=== PATIENT | male | born 1970 ===

== ENCOUNTER 2024-09-09 21:48 | Inpatient (IN) | payer SELFPAY ==
[~2024-09-09] VITALS: Ht 180.3 cm; Wt 73.3 kg
[2024-09-10 13:41] VITALS: BP 147/95
[2024-09-10] MEDS ORDERED: HydrOXYzine Pamoate 50 MG Cap PO PRN (14:00)
[2024-09-10] MEDS ORDERED: FLU VACC TS2024-25(6MOS UP)/PF 45 MCG/0.5 ML SYRINGE IM SCH (14:05)
[2024-09-10] MEDS ORDERED: Haloperidol Lactate Inj. 5 MG/ML Injection IM PRN (14:05)
[2024-09-10] MEDS ORDERED: Aluminum Hydroxide 320MG/5ML 473 ML PO PRN (14:05)
[2024-09-10] MEDS ORDERED: Ibuprofen 600 MG Tab PO PRN (14:05)
[2024-09-10] MEDS ORDERED: DiphenhydrAMINE HCl 50 MG/ML 1ML Vial IV PRN (14:05)
[2024-09-10] MEDS ORDERED: Calcium Carbonate 500 MG Tab Chew PO PRN (14:05)
[2024-09-10] MEDS ORDERED: Haloperidol 5 MG Tab PO PRN (14:05)
[2024-09-10] MEDS ORDERED: Acetaminophen 325 MG TABLET PO PRN (14:05)
[2024-09-10] MEDS ORDERED: DiphenhydrAMINE HCl 50 MG Cap PO PRN (14:10)
[2024-09-10] MEDS ORDERED: TraZODone HCl 50 MG Tab PO PRN (14:10)
[2024-09-10] MEDS ORDERED: LORazepam 2 MG Tab PO PRN (14:10)
[2024-09-10] MEDS ORDERED: Polyethylene Glycol 3350 17 gm PO PRN ×2 (14:10→17:50)
[2024-09-10] MEDS ORDERED: OLANZapine ODT 10 MG Tab MM PRN (14:10)
[2024-09-10] MEDS ORDERED: Ondansetron 4 MG SoluTab MM PRN (14:10)
[2024-09-10] MEDS ORDERED: Melatonin 3 MG Tab PO PRN (14:10)
[2024-09-10] MEDS ORDERED: LORazepam 2 MG/ML 1ML Injection IM PRN (14:15)
[2024-09-10 14:43] VITALS: BP 147/95
[2024-09-10] MEDS ORDERED: LEVSOD25 PO (15:17)
--- NOTE | 2024-09-10 16:03 | NUR ---
ADMISSION NOTE PT DIRECT ADMIT FROM [facility] IN [place] AND ARRIVED AT 1332. PT TEARFUL UPON ARRIVAL AND SEEMS TO BE RESPONDING TO INTERNAL STIMULI. PT ABLE TO ANSWER SOME QUESTIONS, BUT NOT MANY. 2 RN SKIN CHECK COMPLETED. LARGE PROTRUSION NOTED TO LRQ. PT UNABLE TO SAY IF HE HAS SEEN A DOCTOR FOR THE MASS OR HOW LONG HE HAS HAD IT. MASS SEEMS TENDER TO PALPATION AND PT SAYS THAT HE HAS ISSUES WITH BM'S, BUT UNABLE TO ELABORATE. PT UNABLE TO ANSWER MOST ASSESSMENT QUESTIONS DUE TO RESPONDING TO INTERNAL STIMULI AND VISIBLY DISTRAUGHT. PT UNSURE OF REASON FOR ADMISSION AND SAYS "I NEED TO FIND OUT WHAT IS WRONG WITH ME". PT ORIENTED TO ROOM AND SHOWERED, WHICH IMPROVED HIS MOOD GREATLY. PT USING HEADPHONES AND HAS SINCE CALMED DOWN. PT CURRENTLY WALKING IN THE HALLS WITH HEADPHONES ON.
--- NOTE | 2024-09-10 18:12 | NUR ---
SHIFT SUMMARY PT DIRECT ADMIT FROM [facility] IN [place]. PT TEARFUL AND CONFUSED UPON ADMISSION, BUT HAS SINCE CLEARED AFTER BEING ORIENTED TO THE UNIT. PT SEEMS TO BE RESPONDING TO SOME INTERNAL STIMULI BUT FINDS THAT USING HEADPHONES HELPS. LARGE HERNIA NOTED AND HOSPITALIST CONSULTED. HOSPITALIST SAW PT AND RECOMMENDS TO MONITOR PT'S ABILITY TO PASS GAS, HAVE A BM, PAIN, SWELLING, AND REDNESS. PT HAS NOT RECENTLY HAD A BM AND MIRALAX ORDERED. PT ATE LUNCH AND DINNER. PT PARTICIPATING IN [facility]LEU ACTIVITIES. HE CONTINUES TO DENY SI OR HI. MONITORED VIA Q15 ROUNDING FOR SAFETY.
--- NOTE | 2024-09-10 21:15 | NUR ---
MASS SCORE OF 9 PT WAS LAYING IN BED AT START OF SHIFT, AWAKES EASILY. PT REPORTED AUDITORY HALLUCINATIONS BUT WAS CALM AND COOPERATIVE AT THAT TIME. PT GOT UP FOR EVENING SNACK AND WENT BACK TO BED. PT HAD AGREED TO TAKE TRAZODONE AND MELATONIN TO ASSIST WITH SLEEPING, HOWEVER WHEN I WENT TO ADMINISTER MEDS HE STATED THAT HE HAS STOPPED BREATHING BEFORE AND DID NOT WANT TO TAKE THE MEDICATIONS. PT THEN BECAME TEARFUL, WAS HAVING AUDITORY HALLUCINATIONS, TALKING TO HIS MOM AND DAD, STATING "MOMMY AND DADDY, WHY DID YOU DO THAT?" PT APPEARED TO ALSO HAVE VISUAL HALLUCINATIONS. HE WAS DIFFICULT TO REDIRECT OR CONSOLE. RADIOLOGY DIRECTOR ASSISTED WITH ATTEMPTS TO CALM PT. SECURITY WAS CALLED FOR STAND BY ASSIST IF NEEDED FOR ADMINISTRATION OF B52 IM. PT THEN AGREED TO TAKE B52 ORALLY, WHICH WERE GIVEN FOR MASS SCORE OF 9. PT HAS BEEN CALM AND SLEEPING WITH RESPIRATIONS CONFIRMED. Q15 MINUTE CHECKS TO CONTINUE BY STAFF PER UNIT PROTOCOL.
[2024-09-10 22:24] VITALS: BP 127/83
--- NOTE | 2024-09-11 04:24 | NUR ---
END OF SHIFT UPDATE PT HAS BEEN SLEEPING THROUGHOUT THE NIGHT AFTER RECEIVING B52. Q15 MINUTE CHECKS TO CONTINUE PER UNIT PROTOCOL.
[2024-09-11 08:20] VITALS: BP 104/58
[2024-09-11 08:45] LABS: Cholesterol 156 mg/dL (50-200); HDL Cholesterol 39 mg/dL (>39); LDL/HDL RATIO 2.5; Low Density Lipoprotein Chol 98 mg/dL (0-110); Triglycerides 96 mg/dL (30-160); Very Low Density Lipoprot Chol 19 mg/dL (6-32)
[2024-09-11] MEDS ORDERED: Multivitamins 1 Tab PO SCH (09:00)
[2024-09-11] MEDS ORDERED: OLANZapine 10 MG Tab PO SCH (11:00)
--- NOTE | 2024-09-11 18:17 | NUR ---
SHIFT SUMMARY PT A/O X3 AND HIS MENTATION SEEMS TO WAX AND WANE. THE PT IS NOT ALWAYS ABLE TO ANSWER ASSESSMENT QUESTIONS AND SEEMS TO BE RESPONDING TO INTERNAL STIMULI. PT DID ATTEND SOME GROUPS TODAY AND MEALS. PT SEEM BY HOSPITALIST TO CHECK ON UMBILICAL HERNIA. HERNIA REMAINS REDUCEABLE AND BT'S ACTIVE IN ALL QUADRANTS. PT DENIES HAVING A BM TODAY AND WAS GIVEN MIRALAX THIS SHIFT. PT STARTED ON ZYPREXA THIS SHIFT WELL.
[2024-09-11 22:09] VITALS: BP 95/62
--- NOTE | 2024-09-12 04:24 | NUR ---
Patient has been sleeping since beginning of shift and Declined coming out of his room for snack time. Patient did wake up enough to have a brief comversation with this RN and denies SI, HI, VH and TH. Still having intermittant auditory hallucinations which patient stated he did not recognize what they were. HE did agree to take his Zyprexa last night when it was explained to him that this medication would help him with his hallucinations. No complaints of pain or discomfort at time of assessment. At this time, patient has slept approximately 9.5 hours, and is still sleeping still. Will continue closely monitoring every 15 minutes for safety and comfort.
[2024-09-12] MEDS ORDERED: Levothyroxine Sodium 0.05 MG Tab PO SCH (06:00)
[2024-09-12 07:54] LABS: Hematocrit 43.9 % (37.0-53.0); Hemoglobin 14.8 g/dL (13.5-17.5); Mean Corpuscular HGB 32.4 pg (26.0-34.0); Mean Corpuscular HGB Conc 33.7 g/dL (31.5-36.5); Mean Corpuscular Volume 96 fL (80-100); Mean Platelet Volume 9.1 fL (9.1-12.4); Platelet Count 179 K/mm3 (150-400); RDW Coefficient Variation 13.4 % (11.7-14.2); RDW Standard Deviation 47.6 fL (35.1-46.3); Red Blood Cell Count 4.57 M/mm3 (4.30-5.90); White Blood Cell Count 9.03 K/mm3 (4.00-11.30)
[2024-09-12 08:17] LABS: Albumin, Blood 3.3 g/dL (3.4-5.0); Albumin/Globulin Ratio 0.9 (0.8-1.8); Bilirubin, Total 0.7 mg/dL (0.1-1.0); Bun/Creatinine Ratio 20.2 (12.0-20.0); Calcium, Blood 8.6 mg/dL (8.5-10.1); Creatinine, Blood 1.14 mg/dL (0.60-1.20); Globulin, Blood 3.8 g/dL (2.2-4.0); Potassium, Blood 4.5 mmol/L (3.5-5.5); Thyroid Stimulating Hormone 9.16 uIU/mL (0.360-4.800); Total Protein, Blood 7.1 g/dL (6.4-8.2)
[2024-09-12 08:24] LABS: BASOPHILS PERCENT MAN 0 % (0-2); EOSINOPHILS PERCENT MAN 0 % (0-6); LYMPHOCYTES % ATYPICAL MANUAL 2 % (0-0); LYMPHOCYTES ABSOLUTE MAN 6.86 K/mm3 (0.84-5.20); LYMPHOCYTES PERCENT MAN 74 % (21-46); MONOCYTES ABSOLUTE MAN 0.72 K/mm3 (0.16-1.47); MONOCYTES PERCENT MAN 8 % (4-13); NEUTROPHILS ABSOLUTE MAN 1.44 K/mm3 (1.96-9.15); SEG NEUTROPHILS PERCENT MAN 16 % (41-73); TOTAL CELLS COUNTED 100
[2024-09-12 08:31] VITALS: BP 99/63
[2024-09-12 09:43] LABS: Free Thyroxine 0.66 ng/dL (0.70-1.60); Thyroxine (T4) 5.2 ug/dL (4.5-12.1); Triiodothyronine, Free 2.04 pg/mL (2.18-3.98)
[2024-09-12] MEDS ORDERED: RisperiDONE 1 MG Tab PO ONE (16:20)
--- NOTE | 2024-09-12 16:41 | NUR ---
PT C/O INCREASED AUDITORY HALLUCINATIONS. PT HAS REMAINED IN HIS ROOM SITTING UP IN BED FOR MOST OF THE DAY. HAS BEEN PROVIDED WITH HEADPHONES, STATES THAT THE VOICES ARE COMING THROUGH OVER THE MUSIC. PROVIDER NOTIFIED AND STATED TO GIVE HS DOSE OF RISERDONE NOW AND HOLD HS DOSE. PT MEDICATED PER ORDERS.
--- NOTE | 2024-09-12 16:58 | NUR ---
SHIFT SUMMARY: PT ALERT AND COOPERTIVE. DENIES SI, HI AND AVH. C/O AUDITORY AND VISUAL HALLUCINATIONS. PROVIDER WAS NOTIFIED NOTED AND PT WAS MEDICATED PER ORDERS. PT HAS BEEN CALM AND COOPERATIVE, COMPLIANT WITH MEDICATIONS AND PRESENT FOR MEALS.
[2024-09-12] MEDS ORDERED: OLANZapine 5 MG Tab PO SCH (21:00)
[2024-09-12] MEDS ORDERED: RisperiDONE 1 MG Tab PO SCH (21:00)
[2024-09-12 21:02] VITALS: BP 145/93
--- NOTE | 2024-09-13 04:14 | NUR ---
SHIFT SUMMARY : PT A/O X3. REMINEDED OF PLACE AND WHY HE WAS HERE. PT COOPERATIVE AND ENGAGED FOR INTERVIEW. PT IN BED SINCE BEGINING OF SHIFT. PT DID GET UP TO HAVE SNACK. MED COMPLIANT. DENIES TO BE SI AND HI. PT STATES THAT HE IS HEARING VOICES, BUT UNABLE TO STATE CLEARLY OF WHAT IS BEING SAID TO HIM. STATES" I TELL THEM TO GO AWAY" WHILE USING HAND MOTION IF BRUSHING SOMETHNG OFF OF HIS FACE. COMPALINED OF HIS TEETH BEING LOOSE. PUT IN FOR DENTAL CONSULT. DENIES TO HAVE DENTAL PAIN. APPEARS TO HAVE SOME PARANOIA PRESENT UNABLE TO SIT STILL FOR THE WHOLE INTERVIEW. PT HAS BEEN SLEEPING AD BEING MONITORED Q 15 MINUTES FOR SAFTEY. WILL CONTINUE TO MONITOR.
[2024-09-13 09:00] VITALS: BP 142/91
--- NOTE | 2024-09-13 16:51 | NUR ---
SHIFT SUMMARY: PT ALERT, ORIENTED AND COOPERATIVE. PT REPORTS THAT HE IS HAVING AUDITORY AND VISUAL HALLUCINATION. COMPLIANT WITH MEDICATIONS. PT HAS BEEN OUT FOR MEALS BUT HAS SPENT THE MAJORITY OF THE DAY. USING THE HEADPHONES AT TIMES AND SLEEPING.
[2024-09-13 20:53] VITALS: BP 133/84
[2024-09-13] MEDS ORDERED: RisperiDONE 1 MG Tab PO SCH (21:00)
--- NOTE | 2024-09-14 04:33 | NUR ---
SHIFT SUMMARY PATIENT BACK TO HIS ROOM AFTER SNACK, APPEARS SENSITIVE TO LOUD NOISES. PATIENT BECOMING ANXIOUS AND AGITATED WHEN THERE WAS 3 TABLETS OF RISPERIDONE, "I TAKE TO MANY PILLS" "THEY ARN'T EVEN HELPING" VERBAIZED THAT HE WAS AFRAID TO GO TO SLEEP AND NOT WAKE-UP. "WHY CAN'T THEY JUST CUT THIS THING OUT OF ME" SHOWING WHERE ON HIS HEAD TO CUT AND THEN "THEY CAN JUST PULL IT OUT" AFTER MULTIPLE ATTEMPTS TO EXPLAIN THE DOSAGE CHANGE AND THAT IT IS IMPORTANT TO TAKE THE MEDICATIONS THAT THE DOCTOR ORDERS. PATIENT "WELL IF YOU ARN'T GOING TO GIVE UP ON THIS I'LL JUST TAKE IT" AND HE WAS ABLE TO SWALLOW TABLETS WITHOUT DIFFICULTY. DURING FURTHER CONVERSATION PATIENT HAVING PARANOID CONVERSATION ABOUT "THEY ARE TAKING OVER" AND THAT THE "WAR IS HERE". NOTICED PATIENT RUBBING HIS ABD AND ASKED IF HIS HERNIA WAS PAINFUL. VERBALIZED THAT HE CAN FEEL "IT" MOVING IN HIS BODY AND NOBODY BELIEVES HIM. AT ONE POINT DURING THE EARLY EVENING MHA NIMA FOUND THE PATIENT IN HIS BATHROOM LAYING ON THE BATHROOM DOOR, PATIENT VERBALIZING THAT "IT'S TO CROWDED OUT THERE" POINTING TO HIS ROOM, RETURNING BACK TO BED AFTER THEIR CONVERSATION. DENIES SI OR HI. T/O THE REMAINDER OF THE NIGHT PATIENT APPEARS TO BE SLEEPING WELL, RESP EVEN AND UNLABORED. CONTINUE TO MONITOR Q15MIN
--- NOTE | 2024-09-14 06:09 | NUR ---
PATIENT AWAKENS TO SLIGHT STIMULI FOR 0600 THYROID. WHEN ASKED HOW HE SLEPT VERBALIZED "WELL" TAKING MED WITHOUT HESITATION.
--- NOTE | 2024-09-14 13:54 | NUR ---
SHIFT ASSESSMENT: PT DENIED SI, HI, ANXIETY AND PAIN. HE ENDORSED AVH, "THEY ARE ALWAYS THERE." WHEN ASKED ABOUT HIS MOOD HE REPORTED, "I DON'T HAVE ONE." HE HAS REMAINED IN HIS ROOM MOST OF THE DAY. PT HAS EATEN HIS MEALS. HE IS COOPERATIVE WITH CARE AND IS MED COMPLIANT.
--- NOTE | 2024-09-14 15:47 | NUR ---
PT HAS BEEN IN BED ALL DAY OTHER THAN MEAL TIMES, HE HAS BEEN COMPLIANT WITH MEDS AND HAS BEEN COOPERITIVE WITH CARE. HE REPORTED THAT HE IS GOING TO SHOWER IN A FEW MINUTES.
[2024-09-14] MEDS ORDERED: RisperiDONE 1 MG Tab PO SCH (21:00)
[2024-09-14 21:35] VITALS: BP 133/84
--- NOTE | 2024-09-15 04:35 | NUR ---
SHIFT SUMMARY: PATIENT WAS IN BED AT THE BEGINNING OF THE SHIFT. HE DECLINED OFFER OF SNACK TIME AT 1999. HE STATED "I AM HEARING THE VOICES AND THEY MADE SOMETHING FLY ACROSS THE ROOM AND HIT ME IN THE HEAD WHILE I WAS SLEEPING". HE AGREED TO TRY A VISTARIL WITH HIS EVENING MEDICATIONS. IT APPEARED TO HAVE GOOD EFFECT. HE STATED, BEFORE MEDICATIONS, "I WANT TO BECAUSE THE VOICES ARE BOTHERING ME". RN USED ACTIVE LISTENING AND EDUCATION REGARDING THE NATURE OF VOICES TO INTERACT WITH PATIENT. HE STATED A GOAL OF "QUIETING THEM TO A WHISPER". HE WAS COOPERATIVE, A BIT GRUMPY. HE WAS COMPLIANT WITH EVENING MEDICATIONS. HE DID NOT KNOW WHAT THE RISPERDAL WAS FOR, BUT WAS ACCEPTING OF MEDICATION EDUCATION. HE STATED A DESIRE TO SPEAK ABOUT IT WITH THE DOCTOR IN THE MORNING. HE STATED THAT HE WANTED TO BUT DID NOT PLAN TO ACTIVELY SEEK SUICIDE AT THIS TIME. HE ALSO DENIED WANTING TO SELF HARM AT THIS TIME. HE MOSTLY RESTED QUIETLY IN BED WITH EYES CLOSED AND RESPIRATIONS CONFIRMED. CONTINUING TO MONITOR FOR SAFETY WITH Q15 MINUTE CHECKS.
[2024-09-15] MEDS ORDERED: Paliperidone Palmitate 234 MG/1.5 ML SYR IM ONE (16:00)
--- NOTE | 2024-09-15 18:23 | NUR ---
SHIFT SUMMARY PT SLEEPING IN HIS ROOM FOR THE MAJORITY OF THE SHIFT. HE ATTENDED MEALS BUT DID NOT ATTEND ANY GROUPS THIS SHIFT. HE DENIES SI BUT ENDORSES AH. PT REPORTS THAT THE VOICES ARE CONSTANT. PT RECEIVED FIRST INVEGA INJECTION THIS SHIFT AND PT COMPLIANT WITH MEDICATIONS. WILL REPORT TO ONCOMING RN.
[2024-09-15 20:23] VITALS: BP 113/76
--- NOTE | 2024-09-16 04:21 | NUR ---
SHIFT SUMMARY: PATIENT WAS IN BED AT THE BEGINNING OF THE SHIFT, AND STAYED THERE EXCEPT FOR TRIPS TO HIS BATHROOM. HE WAS FRIENDLIER AND MORE ENGAGED IN CONVERSATIONS. HE WAS MEDICATION COMPLIANT. HE DID NOT WANT TO GO TO SNACK OR FOLLOW UP THIS SHIFT. HE MOSTLY RESTED QUIETLY WITH EYES CLOSED AND RESPIRATIONS CONFIRMED. HE ADMITTED TO HEARING VOICES, BUT STATED, "THEY ARE QUIETER TODAY". HE STATED, "THEY ARE NOT GONE". HE PRESENTS IRRITATED BY THE VOICES. HE STATED, "YES, THEY ARE BOTHERING ME A LOT". HE STATED THAT HE OFTEN FEELS LIKE DYING, BUT THAT HE WILL NOT TRY TO DO SO AT THIS TIME, BECAUSE "THINGS ARE BETTER". HE ALSO DENIED THOUGHTS OF SELF HARMING AT THIS TIME. HE AGREED TO COME AND TALK TO SOMEONE OR EVEN CALL OUT SHOULD THAT CHANGE AT ANY TIME. CONTINUING TO MONITOR FOR SAFETY WITH Q15 MINUTE CHECKS.
[2024-09-16 07:59] VITALS: BP 116/68
--- NOTE | 2024-09-16 17:26 | NUR ---
SHIFT SUMMARY PT DENIES SI AND HI. HE STILL REPORTS HEARING SOME VOICES BUT SAYS THAT THEY ARE "WHISPERS" COMPARED TO WHAT THEY WERE. PT DID WISH TO DISCHARGE THIS SHIFT BUT IS NOW AGREEABLE TO STAY. PT REPORTS SOME TENDERNESS IN HIS HERNIA BUT HERNIA APPEARS UNCHANGED AND PT IS ABLE TO REDUCE IT HIMSELF. PT HAD A BM YESTERDAY AND IS PASSING GAS. RN RECOMMENDED THAT PT FOLLOW UP WITH PRIMARY OUTPATIENT FOR HERNIA. NO OTHER COMPLAINTS THIS SHIFT. WILL REPORT TO ONCOMING RN.
[2024-09-16 20:16] VITALS: BP 112/81
[2024-09-16] MEDS ORDERED: RisperiDONE 1 MG Tab PO SCH (21:00)
--- NOTE | 2024-09-17 04:32 | NUR ---
SHIFT SUMMARY PATIENT AWAKE IN BED AT BEGINNING OF SHIFT. ANSWERING QUESTIONS, CONTINUES TO HAVE BOTH AUDITORY AND VISUAL HALLUCINATIONS, VERBALIZING "SEE IT IN MY EYE" AND "ATTACHED TO MY BODY AND I FIGHT IT" TALKING ABOUT FALLING STARS AND FALLEN ANGLES WHICH PROGRESSES INTO MORE PARANOID DISCUSSIONS. AT TIMES DIFFICULT TO FOLLOW CONVERSATION. PATIENT WENT TO SNACK THEN RETURNED TO HIS ROOM QUICKLY. PATIENT COMPLIANT WITH MEDICATIONS, WHEN EXPLAINED THAT HE HAD 5 TABS OF RISPERDAL PATIENT ABLE TO REMEMBER THAT HE HAD 4 EARLIER, AND THAT HE WAS HOPING TO THE CURRENT DOSE INTO 1 TAB SOON. PATIENT VERBALIZED FRUSTRATION THAT IT WAS TAKING SO LONG TO CONTROL "THESE" HE WAVES HIS HAND AROUND. PATIENT APPEARS TO BE SLEEPING WELL T/O NIGHT WITH RESP EVEN AND UNLABORED. CONTINUE TO MONITOR Q15MIN.
--- NOTE | 2024-09-17 09:01 | NUR ---
PT DENIED SI AND HI, HE ENDORSED AUDITORY HALLUCINATIONS, "THEY ARE STILL THERE BUT THEY ARE QUIET." HE ATE MINIMAL BREAKFAST AND RETURNED TO BED. PT REPORTED DISCOMFORT TO THE HERNIA 4/10w. HE AGREED THAT "I CAN MAKE IT GO DOWN BUT THEN WHEN I EAT OR ANYTHING IT COMES BACK." THE AREA IS SOFT AND HAS GAS MOVEMENT. WHEN ASKED ABOUT HIS MOOD HE RESPONDED, "I'M DEPRESSED, THEY SAID I COULD BE VOLUNTARY BUT NOW THEY WON'T LET ME GO." PT ENCOURAGED TO STAY SO HIS MEDS CAN BE STABLIZED, HE WAS ALSO ENCOURAGED TO TALK WITH HIS PROVIDER ABOUT HIS CONCERNS.
--- NOTE | 2024-09-17 09:12 | NUR ---
INSURANCE INFORMATION [facility] to assess patient for the [facility] this day. BHU admission discharge rn notified
--- NOTE | 2024-09-17 16:54 | NUR ---
NURSE NOTE PT C/O NOT BEING ABLE TO REDUCE LLQ HERNIA. C/O TENDERNESS HE IS NOT ABLE TO TOLERATE WITH ATTEMPTS TO DO SO. NOTIFIED.
--- NOTE | 2024-09-17 17:41 | NUR ---
SHIFT NOTE PT SPENT MOST TIME IN HIS ROOM THIS SHIFT. HE DENIES HAVING HI/SI/VTH BUT STATES HE OCCASSIONALLY HEARS A VOICE BUT IT IS NOT FREQUENT OR SEVERE IT HAS BEEN. PT DID ASK FOR XANAX STATING HE WAS FEELING ANXIOUS AND C/O HANDS TURNING RED. NO REDNESS NOTICED. PT WAS GIVEN PRN VISTARIL FOR ANXIETY. HE C/O SLIGHT ABD DISCOMFORT AND NOT BEING ABLE TO REDUCE HIS ABD HERNIA. MD NOTIFIED AND HOSPITALIST CONSULT PLACED. PT WAS COMPLIANT WITH ALL MEDICATIONS THIS SHIFT. HE AMBULATED THE HALLWAYS IN THE EVENING. WILL CONT. WITH Q15 MIN CHECKS.
[2024-09-17 20:57] VITALS: BP 121/82
--- NOTE | 2024-09-18 06:04 | NUR ---
Patient stayed in bed throughout the shift with exception of snack time. Patient stated no SI, HI VH or TH. {atient still having AH, but states less yesterday evening. No Visit from Hospitalist last night. Patient states pain slightly less uncomfortable last night. Will ask day RN to please re-contact morning hospitalist this morning. No PRN's given last night. Will continue close monitoring for safety and comfort.
--- NOTE | 2024-09-18 12:08 | NUR ---
Spiritual Care Consult | Pt. request Greet Pt. in the visitor room. Pt. is pleasant, but is unsettled by "voices inside his head." With theraputic listening and a calming presence the Pt. began to share some of his spiritual struggles. Pt. displays moments of clarity, and moments of disillusion. This safety technician attempted to give the Pt. a safe environment to share his thoughts. Prayed with Pt. Pt. verbalized gratitude for the spiritual care visit.
--- NOTE | 2024-09-18 18:36 | NUR ---
SHIFT SUMMARY PT A/O X4; DENIES SI AND HI BUT ENDORSES AUDITORY HALLUCINATIONS. PT TO GET HIS SECOND INVEGA INJECTION TOMORROW AND THEN PLANS TO DC BACK TO THE [place] [facility] AFTER. HERNIA VISUALIZED, PALPATED AND ABLE TO BE REDUCED. BT POSITIVE IN ALL QUADRANTS. PT ATTENDED MEALS AND LEFT HIS ROOM A FEW TIMES THIS SHIFT WITH HEADPHONES. PT CONTINUES TO BE MONITORED VIA Q15 ROUNDING. WILL REPORT TO ONCOMING RN.
[2024-09-18 20:08] VITALS: BP 116/77
--- NOTE | 2024-09-19 04:07 | NUR ---
Patient slept through the shift again with exception of getting up for snack time and evening assessment. He is A&OX3 and denies SI,HI and VH and TH. Still experiencing Auditory hallucinations, but patient again states they are more tolerable now over the last 1-2 days. Minimal complaints of abdominal pain. however, patient now complains of a 6/10 headache and refused APAP or Advil for relief stating we don't have anything strong enough to touch him. He then denied wanting anything stronger for his discomfort. Will continue observation every 15 minutes for safety and comfort.
[2024-09-19] MEDS ORDERED: Paliperidone Palmitate 156 MG/ML SYR IM ONE (09:00)
--- NOTE | 2024-09-19 12:11 | NUR ---
HOSPITAL DISCHARGE INFORMATION LEGAL NAME: KEVEN RUFF NEW [facility] [id number] OPEN CARD, TURN SEWER, [facility] WILL MANAGE CARE IN 4-5 BUISNESS DAYS. [facility] WILL ASSIST PATIENT WITH HIS OVERALL HEALTH NEEDS AND APPOINTMENTS INCLUDING: CRISIS INTERVENTION PATIENT HAS BEEN ACEPTED TO [facility]24 GENERAL MAIL SET UP WITH THE [facility]
--- NOTE | 2024-09-19 16:50 | NUR ---
SHIFT SUMMARY PT A/O X4; PLEASANT AND COOPERATIVE WITH CARE. HE DENIES SI AND HI. HE REPORTS AH BUT REPORTS THAT THEY HAVE SIGNIFICANTLY LESSENED. HE RECEIVED HIS SECOND INVEGA INJECTION THIS SHIFT. THE PLAN IS FOR HIM TO DISCHARGE TOMORROW TO THE [facility]. PT'S LAST NAME CORRECTED THIS SHIFT WELL.
[2024-09-19] MEDS ORDERED: HYDPAM50 PO (17:35)
[2024-09-19] MEDS ORDERED: MELA3 PO (17:36)
[2024-09-19] MEDS ORDERED: MULVITA PO (17:36)
[2024-09-19] MEDS ORDERED: TRAZ50 PO (17:37)
[2024-09-19] MEDS ORDERED: RISP2 PO (17:37)
[2024-09-19 20:54] VITALS: BP 118/74
--- NOTE | 2024-09-20 04:34 | NUR ---
SHIFT SUMMARY: PATIENT WAS IN HIS ROOM RESTING ON THE FLOOR WITHOUT A MATTRESS, BUT WITH A BLANKET UNDER AND OVER HIM. HE GREETED RN APPROPRIATELY AND STATED, "SLEEPING ON THE FLOOR IS GOOD FOR MY BACK." HE DECLINED TO ATTEND SNACK AND FOLLOW UP GROUP AT 1999, SHOWING UP FOR A QUICK BITE AND THEN SCOOTING BACK TO HIS ROOM. HE STATED THAT HE WAS COMFORTABLE SLEEPING ON THE FLOOR. HE WAS COMPLIANT WITH EVENING MEDICATIONS. HE WAS ABLE TO MAKE NEEDS KNOWN. HE DID NOT COMMUNICATE ANY NEEDS OR CONCERNS THIS SHIFT. HE DENIED ANY THOUGHTS OF SUICIDAL IDEATION OR SELF HARMING. CONTINUING TO MONITOR FOR SAFETY WITH Q15 MINUTE CHECKS.
[2024-09-20] MEDS ORDERED: RisperiDONE 1 MG Tab PO ONE (09:25)
--- NOTE | 2024-09-20 12:23 | NUR ---
PT DENIED SI, HI, ANXIETY, WHEN ASKED ABOUT AVH HE REPORTED "NOT RIGHT NOW." HE SAID, "MY BACK HURTS A LITTLE BIT." HE RESTED ON THE FLOOR ON A BLANKET BETWEEN MEALS. PT WAS COOPERATIVE WITH CARE AND WAS POLITE. HE REPORTED HIS MOOD "I'M READY TO LEAVE." PT ASKED FOR SOMETHING FOR ANXIETY AT 11:19. HE IS CURRENTLY WALKING IN THE HALLS.
--- NOTE | 2024-09-20 12:58 | NUR ---
DISCHARGE NOTE: PT WAS DISCHARGED TO THE [facility] WITH ALL OF HIS BELONGINGS AND HIS DISCHARGE INSTRUCTIONS. PT HAS NO PROOF OF INSURANCE OHP WAS JUST ESTABLISHED IN THE LAST FEW DAYS. HE WAS ENCOURAGED TO SELF PAY FOR HIS MENTAL HEALTH PRESCRIPTIONS AND TO STAY ON THE SCHEDULED DOSAGE. HE VERBALIZED UNDERSTANDING AND THAT HE WOULD DO THAT. HIS PRESCRIPTIONS WERE CALLED INTO [facility] TO "MADELEINE" PHARMACIST. PT LEFT [facility] AT 12:53.
--- NOTE | 2024-09-20 13:10 | NUR ---
PT WAS DISCHARGED BY [facility]...TAKEN TO [facility] AND THEN TO THE [facility].
[2024-09-20] MEDS ORDERED: RisperiDONE 1 MG Tab PO SCH (21:00)
== END 2024-09-20 12:53 | disposition home or self-care (01) | DRG 885 ==
LOC: BHU 21:48
PROVIDERS: Student in an Organized Health Care Education/Training Program; ADMIT Psychiatry & Neurology Psychiatry
DX: F20.0 Paranoid schizophrenia (principal); Z59.00 Homelessness unspecified; E03.9 Hypothyroidism, unspecified; I10 Essential (primary) hypertension; K42.9 Umbilical hernia without obstruction or gangrene; Z79.890 Hormone replacement therapy; F15.91 Other stimulant use, unspecified, in remission
CPT/HCPCS: 36415; 80053; 80061; 83036; 84436; 84439; 84443; 84481; 85025; A9270; J1200; J1630; J2060; J2426